=== PATIENT | male | born 1985 | race African-American/Black ===

== ENCOUNTER 2017-10-11 16:32 | Emergency (ER) | payer OTHER ==
[2017-10-11] VITALS (15 sets, daily range): BP systolic 109–127; BP diastolic 59–94
[~2017-10-11] VITALS: Ht 180.3 cm; Wt 99.8 kg
--- NOTE | 2017-10-11 16:35 | Emergency Room Report ---
History of Present Illness General Source: EMS Present Illness HPI Patient is brought in by EMS and [employer]. He was breaking car windows. Allegedly he's been doing PCP. He was tazed twice. EMS gave the patient 5 mg Versed IM. He's transported to us. The patient is unable to answer questions at this time. Review of records show he was admitted in 2010 for rhabdomyolysis and tachycardia. Those records are not available at this time. He had one other encounter here for ALOC and refused treatment. Allergies: Coded Allergies: No Known Allergies (Verified , 05/30/10) UNABLE TO ASSESS (Unverified , 10/11/17) Patient History Limited by: medical condition Past Medical History: see triage record Social History: Reports: drug use Social History Narrative patient later gave address Reviewed Nursing Documentation: PMH: Agreed; PSxH: Agreed Review of Systems All Other Systems: limited Physical Exam Vital Signs Date Time Temp Pulse Resp B/P (MAP) Pulse Ox O2 Delivery O2 Flow Rate FiO2 10/11/17 16:32 150 20 150/90 99 Room Air 10/11/17 16:34 98.1 Sp02 EP Interpretation: reviewed, normal General Appearance: no apparent distress, non-toxic, other - post Versed in field Head: normocephalic, atraumatic Eyes: bilateral eye PERRL, bilateral eye Scleral Injection ENT: moist mucus membranes Neck: supple Respiratory: lungs clear, normal breath sounds Cardiovascular #1: regular rate, rhythm Cardiovascular #2: 2+ radial (R) Gastrointestinal: normal inspection, normal bowel sounds, non tender, no mass, non-distended Musculoskeletal: back normal, normal range of motion Neurologic: other - lethargic, moves all 4 but not withdraw to pain Psychiatric: other - stupor/post Versed Reflexes: 1+ knee (R), 1+ knee (L) Skin: normal inspection, warm/dry, other - Tazer darts abdomen Medical Decision Making Restraint Attestation I, Orlando Monsalve MD, have personally evaluated this patient. Laboratory tests have been reviewed and addressed accordingly. The patient is deemed to present a danger to themselves and/or others. This is based on the exam, history ( provided by patient, EMS/[employer] and/or family) and observed or reported behavior. Attempts for non-invasive measures have been considered and/or attempted, however, have been futile. It is in the best interest of the nursing staff, the patient, and others involved in this patient's care that behavioral restraints be applied. Patient evaluation reveals the following: Medical: Substance Abuse Reaction to Intervention: No change Diagnostic Impression: Primary Impression: PCP (phencyclidine) abuse Additional Impressions: Polysubstance abuse Post [facility] ER Course Patient brought in with agitated delirium and allegedly he CP use. Differential includes agitated delirium, multi-toxic ingestions, left right abnormality, hyperthermia, rhabdomyolysis amongst others. The patient will be evaluated with EKG, chest x-ray and labs. Due to the nature of the substance ingested a hard restraints are ordered. Patient will receive IV hydration. The patient will need to be reassessed when that agitated delirium is treated. At this point CT of the head is not indicated. EKG without injury. CXR no infiltrates. Labs significant for CK 411, + amphetamine and PCP. Glucose min elevated. With cardiac observation, patient resting. Patient alert and OX3. No evidence of extremity or head trauma. Not remember why here. VS normalized. Stable for [facility]. Laboratory Tests Test 10/11/17 17:00 10/11/17 17:15 White Blood Count 9.2 K/UL (4.8-10.8) Red Blood Count 5.24 M/UL (4.70-6.10) Hemoglobin 15.8 G/DL (14.2-18.0) Hematocrit 47.1 % (42.0-52.0) Mean Corpuscular Volume 90 FL (80-99) Mean Corpuscular Hemoglobin 30.1 PG (27.0-31.0) Mean Corpuscular Hemoglobin Concent 33.5 G/DL (32.0-36.0) Red Cell Distribution Width 12.0 % (11.6-14.8) Platelet Count 240 K/UL (150-450) Mean Platelet Volume 4.6 FL (6.5-10.1) L Neutrophils (%) (Auto) 77.1 % (45.0-75.0) H Lymphocytes (%) (Auto) 14.1 % (20.0-45.0) L Monocytes (%) (Auto) 6.0 % (1.0-10.0) Eosinophils (%) (Auto) 1.1 % (0.0-3.0) Basophils (%) (Auto) 1.7 % (0.0-2.0) Sodium Level 140 MMOL/L (136-145) Potassium Level 3.7 MMOL/L (3.5-5.1) Chloride Level 103 MMOL/L (98-107) Carbon Dioxide Level 27 MMOL/L (21-32) Anion Gap 10 mmol/L (5-15) Blood Urea Nitrogen 11 mg/dL (7-18) Creatinine 1.3 MG/DL (0.55-1.30) Estimate Glomerular Filtration Rate > 60 mL/min (>60) Glucose Level 201 MG/DL (74-106) H Calcium Level 9.2 MG/DL (8.5-10.1) Total Bilirubin 0.6 MG/DL (0.2-1.0) Aspartate Amino Transferase (AST) 23 U/L (15-37) Alanine Aminotransferase (ALT) 31 U/L (12-78) Alkaline Phosphatase 70 U/L (46-116) Total Creatine Kinase 411 U/L (26-308) H Total Protein 7.0 G/DL (6.4-8.2) Albumin 3.3 G/DL (3.4-5.0) L Globulin 3.7 g/dL Albumin/Globulin Ratio 0.9 (1.0-2.7) L Salicylates Level 0.9 ug/mL (2.8-20) L Acetaminophen Level < 2 MCG/ML (10-30) L Serum Alcohol < 3 mg/dL Urine Color Pale yellow Urine Appearance Clear Urine pH 6 (4.5-8.0) Urine Specific [place] 1.010 (1.005-1.035) Urine Protein Negative (NEGATIVE) Urine Glucose (UA) Negative (NEGATIVE) Urine Ketones Negative (NEGATIVE) Urine Occult Blood Negative (NEGATIVE) Urine Nitrite Negative (NEGATIVE) Urine Bilirubin Negative (NEGATIVE) Urine Urobilinogen Normal MG/DL (0.0-1.0) Urine Leukocyte Esterase Negative (NEGATIVE) Urine Opiates Screen Negative (NEGATIVE) Urine Barbiturates Screen Negative (NEGATIVE) Phencyclidine (PCP) Screen Positive (NEGATIVE) H Urine Amphetamines Screen Positive (NEGATIVE) H Urine Benzodiazepines Screen Positive (NEGATIVE) H Urine Cocaine Screen Negative (NEGATIVE) Urine Marijuana (THC) Screen Negative (NEGATIVE) EKG Diagnostic Results Rate: tachycardiac ST Segments: no acute changes Rhythm Strip Diag. Results EP Interpretation: yes Rhythm: no PVC's, no ectopy, other - Sinus tachycardia Last Vital Signs Date Time Temp Pulse Resp B/P (MAP) Pulse Ox O2 Delivery O2 Flow Rate FiO2 10/11/17 20:15 98.0 98 20 122/65 99 Room Air 98.0 Status: improved Disposition: D/C TO [facility] Condition: Improved Orlando Monsalve M.D. Oct 11, 2017 16:35
[2017-10-11 17:29] LABS: APPEARANCE,URINE CLEAR; BILIRUBIN, URINE NEGATIVE (NEGATIVE); COLOR,URINE PALE YELLOW; GLUCOSE, URINE (UA) NEGATIVE (NEGATIVE); KETONES,URINE NEGATIVE (NEGATIVE); LEUKOCYTE ESTERASE ,URINE NEGATIVE (NEGATIVE); NITRITE,URINE NEGATIVE (NEGATIVE); PH,URINE 6 (4.5-8.0); PROTEIN,URINE NEGATIVE (NEGATIVE); UROBILINOGEN,URINE NORMAL MG/DL (0.0-1.0)
[2017-10-11 17:32] LABS: BASOPHILS % (AUTO) 1.7 % (0.0-2.0); EOSINOPHILS % (AUTO) 1.1 % (0.0-3.0); HEMATOCRIT 47.1 % (42.0-52.0); HEMOGLOBIN 15.8 G/DL (14.2-18.0); LYMPHOCYTES % (AUTO) 14.1 % (20.0-45.0); MEAN CORPUSCULAR VOLUME 90 FL (80-99); NEUTROPHILS % (AUTO) 77.1 % (45.0-75.0); PLATELET COUNT 240 K/UL (150-450); RED BLOOD COUNT 5.24 M/UL (4.70-6.10); WHITE BLOOD COUNT 9.2 K/UL (4.8-10.8)
[2017-10-11 17:45] LABS: ANION GAP 10 mmol/L (5-15); BLOOD UREA NITROGEN 11 mg/dL (7-18); CALCIUM 9.2 MG/DL (8.5-10.1); CARBON DIOXIDE 27 MMOL/L (21-32); CHLORIDE 103 MMOL/L (98-107); CREATININE 1.3 MG/DL (0.55-1.30); POTASSIUM 3.7 MMOL/L (3.5-5.1); SODIUM 140 MMOL/L (136-145)
[2017-10-11 17:50] LABS: ALANINE AMINOTRANSFERASE 31 U/L (12-78); ALBUMIN 3.3 G/DL (3.4-5.0); ALBUMIN/GLOBULIN RATIO 0.9 (1.0-2.7); ALKALINE PHOSPHATASE 70 U/L (46-116); ASPARTATE AMINO TRANSFERASE 23 U/L (15-37); BILIRUBIN,TOTAL 0.6 MG/DL (0.2-1.0); CREATINE KINASE 411 U/L (26-308)
--- NOTE | 2017-10-12 10:53 | Diagnostic Imaging Report ---
Indication: Chest pain Technique: One view of the chest Comparison: 05/29/2010 Findings: Lungs and pleural spaces are clear. Heart size is normal. No significant change Impression: No acute process
--- NOTE | 2017-10-12 13:32 | Cardiology Report ---
APPROVED REPORT EKG Measurement Heart [id number] Sinus tachycardia Possible Left atrial enlargement Borderline ECG
== END 2017-10-11 20:15 ==
LOC: EDBD 16:32 → EMR 18:18
DX: F16.10 Hallucinogen abuse, uncomplicated (principal); F19.10 Other psychoactive substance abuse, uncomplicated
CPT/HCPCS: 36415; 71045; 80053; 80307; 81003; 82550; 85025; 93005; 96374; 96375; 99283; G0480; 80329

== ENCOUNTER 2017-11-16 03:52 | Emergency (ER) | payer OTHER ==
[~2017-11-16] VITALS: Ht 182.9 cm; Wt 104.3 kg
--- NOTE | 2017-11-16 04:28 | Emergency Room Report ---
History of Present Illness General Chief Complaint: Eye Problems Source: Patient Present Illness HPI Patient with 2 days of increased eye redness and discharge. Yellow crusting in AMs. No pain reported to me, but 9/10 reported to tip bander. or change in vision. No URI sy. No infectious exposure known. No fevers. No headache. H/O PCP use in past. Denies muscle pain. Allergies: Coded Allergies: No Known Allergies (Verified , 05/30/10) Patient History Past Medical History: see triage record Social History: Reports: smoking Social History Narrative temp agency Reviewed Nursing Documentation: PMH: Agreed; PSxH: Agreed Nursing Documentation-PMH Past Medical History: No Stated History Review of Systems Constitutional: Reports: see HPI Eye: Reports: see HPI ENT: Reports: see HPI Respiratory: Denies: cough Gastrointestinal: Denies: abdominal pain, nausea Skin: Denies: rash Neurological: Reports: see HPI Physical Exam Vital Signs Date Time Temp Pulse Resp B/P (MAP) Pulse Ox O2 Delivery O2 Flow Rate FiO2 11/16/17 03:57 98.3 109 18 116/71 98 Room Air 98.2 Sp02 EP Interpretation: reviewed, normal General Appearance: well appearing, no apparent distress Head: normocephalic, atraumatic Eyes: bilateral eye PERRL, bilateral eye Scleral Injection, bilateral eye other - conjunctivae with erythema, corneas clear ENT: hearing grossly normal, normal voice, moist mucus membranes Neck: full range of motion, supple Respiratory: no respiratory distress, speaking full sentences Gastrointestinal: normal inspection Musculoskeletal: gait/station normal, normal range of motion Neurologic: alert, normal gait, grossly normal Psychiatric: mood/affect normal Skin: no rash Lymphatic: other - no pre-auricular node Medical Decision Making Diagnostic Impression: Primary Impression: Bacterial conjunctivitis ER Course Patient with eye redness and discharge. DDx; viral vs bacterial conjunctivitis. Antibiotics indicated based on history. Motrin given for pain. Prescriptions given. Patient stable for outpatient observation and treatment. Last Vital Signs Date Time Temp Pulse Resp B/P (MAP) Pulse Ox O2 Delivery O2 Flow Rate FiO2 11/16/17 04:52 98.0 88 18 112/80 98 Room Air 98.0 Status: improved Disposition: HOME, SELF-CARE Condition: Improved Scripts Dextromethorphan Hb/Doxylamine (ROBITUSSIN NIGHTTIME COUGH DM) 237 Ml Liquid 5 ML PO Q6HR, #60 ML Prov: Orlando Monsalve M.D. 11/16/17 Doxycycline Hyclate* (VIBRAMYCIN*) 100 Mg Capsule 100 MG ORAL EVERY 12 HOURS, #14 CAP 0 Refills Prov: Orlando Monsalve M.D. 11/16/17 Sulfacetamide Sodium (BLEPH-10) 5 Ml Drops 2 DROP OP Q6HR, #5 ML Prov: Orlando Monsalve M.D. 11/16/17 Orlando Monsalve M.D. Nov 16, 2017 04:28
[2017-11-16] MEDS ORDERED: VIBRAMYCIN100 MG ORAL (04:32)
[2017-11-16] MEDS ORDERED: ROBITUSSIN NIG237 ML PO (04:32)
[2017-11-16] MEDS ORDERED: BLEPH-105 ML OP (04:32)
[2017-11-16 04:49] VITALS: BP 112/80
[2017-11-16 04:52] VITALS: BP 112/80
== END 2017-11-16 04:52 | disposition home or self-care (01) ==
LOC: EMR 04:32
DX: H10.89 Other conjunctivitis (principal); F17.200 Nicotine dependence, unspecified, uncomplicated
CPT/HCPCS: 99282